=== PATIENT | male | born 1965 | race Caucasian/White ===

== ENCOUNTER → 2016-08-17 | Outpatient (CLI) | payer MEDICARE, OTHER ==
[2016-08-17 11:09] LABS: HEMOGLOBIN 12.8 gm/dl (14.0-17.5); RED BLOOD COUNT 5.9 M/UL (4.20-5.50); WHITE BLOOD COUNT 9.9 K/UL (4.5-11.0)
== END ==
LOC: LAB 08:40
PROVIDERS: Family Medicine
DX: Z12.5 Encounter for screening for malignant neoplasm of prostate (principal); E11.65 Type 2 diabetes mellitus with hyperglycemia; E78.5 Hyperlipidemia, unspecified; I10 Essential (primary) hypertension; E55.9 Vitamin D deficiency, unspecified; D45 Polycythemia vera; Z88.8 Allergy status to other drugs, medicaments and biological substances
CPT/HCPCS: 36415; 80053; 80061; 82043; 83036; 84439; 84443; 84681; 85027; G0103

== ENCOUNTER → 2016-10-03 | Outpatient (CLI) | payer MEDICARE, OTHER | LOC: LAB 08:48 | PROVIDERS: Internal Medicine Nephrology | DX: N18.3 Chronic kidney disease, stage 3 (moderate) (principal) | CPT/HCPCS: 36415; 80048; 82043; 82570 ==

== ENCOUNTER → 2020-05-18 | Outpatient (CLI) | payer MEDICARE, OTHER ==
[~2020-05-18] MED LIST: ACTOS45 MG PO; BUTALB-ACETAMI1 EAC1 PO; CARVEDILOL12.5 MG PO; CORTIZONE-1057 GM TP; CRESTOR40 MG PO; CYCLOBENZAPRINE5 MG PO; DICYCLOMINE HCL10 MG PO; GLUCOPHAGE XR500 MG PO; JARDIANCE10 MG PO; LIDOCAINE-PRILO30 GM TP; LYRICA100 MG PO; MONTELUKAST SOD10 MG PO; OZEMPIC0.25 MG/0. SQ; PREDNISONE10 MG PO; SPIRONOLACTONE50 MG PO; TOPAMAX50 MG PO; ZANTAC 150 MG150 MG PO
[2020-05-18 10:38] LABS: BUN/CREATININE RATIO 12 (0-10)
[2020-05-19 07:10] LABS: CREATININE, URINE 129.1 mg/dL (Not Estab.)
== END ==
LOC: LAB 09:41
PROVIDERS: Nurse Practitioner
DX: E11.8 Type 2 diabetes mellitus with unspecified complications (principal)
CPT/HCPCS: 36415; 80048; 80061; 82043; 82570; 83036; 84443

== ENCOUNTER → 2020-07-26 | Outpatient (CLI) | payer OTHER ==
[2020-07-26 09:26] LABS: BUN/CREATININE RATIO 15 (0-10)
[2020-07-27 15:13] LABS: CREATININE, URINE 30.4 mg/dL (Not Estab.)
== END ==
LOC: LAB 08:13
PROVIDERS: Internal Medicine Nephrology
DX: N18.30 Chronic kidney disease, stage 3 unspecified (principal)
CPT/HCPCS: 36415; 80048; 82043; 82570

== ENCOUNTER → 2020-08-09 | Outpatient (CLI) | payer OTHER | LOC: HEART 5 07-05 09:30 → ECHO 07-26 11:00 | DX: I10 Essential (primary) hypertension (principal) | CPT/HCPCS: ECHO; 93306 ==

== ENCOUNTER 2020-10-07 01:04 | Emergency (ER) | payer OTHER ==
[~2020-10-07 01:04] MED LIST changes: -PREDNISONE10 MG PO
[2020-10-07] MEDS ORDERED: PREDNISONE10 MG PO (01:36)
== END 2020-10-07 01:48 | disposition home or self-care (01) ==
LOC: ER1 01:04
DX: R21 Rash and other nonspecific skin eruption (principal); I11.9 Hypertensive heart disease without heart failure; E11.9 Type 2 diabetes mellitus without complications; Z77.120 Contact with and (suspected) exposure to mold (toxic)
CPT/HCPCS: 99282

== ENCOUNTER → 2020-11-29 | Outpatient (CLI) | payer OTHER ==
[~2020-11-29] MED LIST changes: +PEPCID20 MG PO; +PREDNISONE 20 M20 MG PO; +PREDNISONE10 MG PO; +ZYRTEC10 M3 PO
[2020-11-29 10:06] LABS: BUN/CREATININE RATIO 12 (0-10)
[2020-11-30 11:16] LABS: CREATININE, URINE 19.4 mg/dL (Not Estab.)
== END ==
LOC: LAB 09:03
PROVIDERS: Internal Medicine Nephrology
DX: N18.30 Chronic kidney disease, stage 3 unspecified (principal)
CPT/HCPCS: 36415; 80048; 82043; 82570

== ENCOUNTER 2021-02-03 19:24 | Emergency (ER) | payer OTHER ==
[~2021-02-03 19:24] MED LIST changes: -PEPCID20 MG PO; -PREDNISONE 20 M20 MG PO; -ZYRTEC10 M3 PO
[2021-02-03] MEDS ORDERED: ZYRTEC10 M3 PO (20:06)
[2021-02-03] MEDS ORDERED: PEPCID20 MG PO (20:06)
[2021-02-03] MEDS ORDERED: PREDNISONE 20 M20 MG PO (20:06)
== END 2021-02-03 20:21 | disposition home or self-care (01) ==
LOC: ER1 19:24
DX: J30.89 Other allergic rhinitis (principal); E78.5 Hyperlipidemia, unspecified; I12.9 Hypertensive chronic kidney disease with stage 1 through stage 4 chronic kidney disease, or unspecified chronic kidney disease; N18.9 Chronic kidney disease, unspecified; E11.22 Type 2 diabetes mellitus with diabetic chronic kidney disease; Z88.8 Allergy status to other drugs, medicaments and biological substances
CPT/HCPCS: 99282

== ENCOUNTER → 2021-02-22 | Outpatient (CLI) | payer OTHER ==
[~2021-02-22] MED LIST changes: +PEPCID20 MG PO; +PREDNISONE 20 M20 MG PO; +ZYRTEC10 M3 PO
[2021-02-22 14:07] LABS: BUN/CREATININE RATIO 8 (0-10)
[2021-02-23 11:14] LABS: CREATININE, URINE 19.6 mg/dL (Not Estab.)
== END ==
LOC: LAB 13:00
PROVIDERS: Internal Medicine Nephrology
DX: R80.9 Proteinuria, unspecified (principal)
CPT/HCPCS: 36415; 80048; 82043; 82570

== ENCOUNTER → 2021-03-15 | Outpatient (CLI) | payer OTHER ==
[2021-03-15 12:20] LABS: BUN/CREATININE RATIO 16 (0-10)
[2021-03-16 09:13] LABS: CREATININE, URINE 23.7 mg/dL (Not Estab.)
== END ==
LOC: LAB 10:51
PROVIDERS: Nurse Practitioner
DX: R80.9 Proteinuria, unspecified (principal); E11.8 Type 2 diabetes mellitus with unspecified complications; Z79.899 Other long term (current) drug therapy
CPT/HCPCS: 36415; 80048; 80061; 82043; 82570; 82607; 84443

== ENCOUNTER → 2021-06-27 | Outpatient (CLI) | payer OTHER ==
[2021-06-28 11:13] LABS: CREATININE, URINE 14.1 mg/dL (Not Estab.)
[2021-06-28 12:13] LABS: CALCIUM, SERUM 9.4 mg/dL (8.7-10.2); CREATININE, SERUM 1.2 mg/dL (0.76-1.27)
== END ==
LOC: LAB 08:32
PROVIDERS: Internal Medicine Nephrology
DX: R80.9 Proteinuria, unspecified (principal)
CPT/HCPCS: 36415; 80048; 82043; 82570

== ENCOUNTER → 2021-08-17 | Outpatient (CLI) | payer OTHER | LOC: KOH-I 15:53 | DX: R07.81 Pleurodynia (principal) | CPT/HCPCS: 71101 ==

== ENCOUNTER → 2021-09-20 | Outpatient (CLI) | payer OTHER ==
[2021-09-20 10:31] LABS: BUN/CREATININE RATIO 14 (0-10)
[2021-09-21 11:13] LABS: CREATININE, URINE 16.3 mg/dL (Not Estab.)
== END ==
LOC: LAB 08:50
PROVIDERS: Internal Medicine Nephrology
DX: R80.9 Proteinuria, unspecified (principal)
CPT/HCPCS: 36415; 80053; 82043; 82570

== ENCOUNTER → 2022-01-24 | Outpatient (CLI) | payer OTHER ==
[2022-01-24 09:04] LABS: BUN/CREATININE RATIO 12 (0-10)
== END ==
LOC: LAB 08:21
PROVIDERS: Internal Medicine Nephrology
DX: R80.9 Proteinuria, unspecified (principal)
CPT/HCPCS: 36415; 80048